=== PATIENT | female | born 1995 | race Hispanic/Latino ===

== ENCOUNTER 2021-12-05 12:57 | Emergency (ER) | payer BC, OTHER ==
--- OUTSIDE RECORDS SUMMARY | 2021-12-05 13:01 | XMS REPORT | Continuity of Care Document ---
:1995 Author Organization [facility] t Address [address] [place] [address] Care Team Providers Name Role Phone REENA MAJANO Attending Clinician Unavailable Problems This patient has no known problems. Allergies, Adverse Reactions, Alerts This patient has no known allergies or adverse reactions. Medications This patient has no known medications. Procedures This patient has no known procedures. Encounters Start End Encounter Admission Attending Care Care Encounter Source Date/Time Date/Time Type Type Clinicians Facility Department ID 2020-07-03 Inpatient [facility] [id number] 15:08:05 REENA Martel [facility] 2020-02-25 2020-02-25 Outpatient [facility] [id number] 09:25:00 11:10:00 [facility]gas [facility] Results This patient has no known results.
--- NOTE | 2021-12-05 13:51 | RAD REPORT ---
EXAM DESCRIPTION: RAD - Hip Right 2 View - 12/05/2021 1:34 pm CLINICAL HISTORY: PAIN COMPARISON: LUMBAR SPINE 3 VIEWS dated 04/26/2014 FINDINGS/IMPRESSION: No acute fracture. No malalignment. Mild right acetabular degenerative changes.
--- NOTE | 2021-12-05 14:27 | ER ---
Nurse's Notes [facility] Name: Elizabeth Guzman Age: 26 yrs Sex: Female : 1995 Arrival Date: 12/05/2021 Time: 12:58 Bed 25 Private MD: Jovan Hart Diagnosis: Pain in right hip Presentation: 12/05 13:04 Chief complaint: Patient states: she is having right hip pain after running. patient ap3 states she went running Friday11/29/21 and started having right hip pain on 11/30/21. patient states she waited a few days before attempting to run again, and when she did, she started having increased hip pain again. Patient reports decrease mobility with the right leg. Coronavirus screen: At this time, the client does not indicate any symptoms associated with coronavirus-19. Ebola Screen: No symptoms or risks identified at this time. Initial Sepsis Screen: Does the patient meet any 2 criteria? No. Patient's initial sepsis screen is negative. Does the patient have a suspected source of infection? No. Patient's initial sepsis screen is negative. Risk Assessment: Do you want to hurt yourself or someone else? Patient reports no desire to harm self or others. Onset of symptoms was November 29, 2021. 13:04 Method Of Arrival: Wheelchair ap3 13:04 Acuity: MARICHUY 4 ap3 Triage Assessment: 13:07 General: Appears uncomfortable, Behavior is calm, cooperative. Pain: Complains of pain ap3 in right hip. Neuro: Level of Consciousness is awake, alert, obeys commands, Oriented to person, place, time, situation. Cardiovascular: Patient's skin is warm and dry. Respiratory: Airway is patent Respiratory effort is even, unlabored. Musculoskeletal: Range of motion: limited in right hip Reports pain in right hip. 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 - Social history:: Smoking status: Patient denies any tobacco usage or history of. Screenin:07 Abuse screen: Denies threats or abuse. Nutritional screening: No deficits noted. ap3 Tuberculosis screening: No symptoms or risk factors identified. 13:10 Fall Risk No fall in past 12 months (0 pts). No secondary diagnosis (0 pts). No IV (0 tp1 pts). Ambulatory Aid- Crutches/Cane/Walker (15 pts). Gait- Weak (10 pts.). Mental Status- Oriented to own ability (0 pts). Total Vee Fall Scale indicates Low Risk Score (25-44 pts). Fall prevention measures have been instituted. Side Rails Up X 2 Placed close to Nursing Station Family Present and informed to notify staff if they need to leave bedside. Assessment: 13:15 General: Appears in no apparent distress. comfortable, Behavior is calm, cooperative. tp1 Pain: Complains of pain in right hip Pain radiates to right low back Pain currently is 3 out of 10 on a pain scale. at worst was 8 out of 10 on a pain scale. Pain began 2-3 days ago. Is continuous. Neuro: Level of Consciousness is awake, alert, obeys commands, Oriented to person, place, time, situation. Cardiovascular: Denies denies numbness or tingling in right leg Patient's skin is warm and dry. Respiratory: Airway is patent Respiratory effort is even, unlabored. GI: Abdomen is round non-distended. : No signs and/or symptoms were reported regarding the genitourinary system. EENT: No signs and/or symptoms were reported regarding the EENT system. Derm: Skin is pink, warm \T\ dry. Musculoskeletal: Circulation, motion, and sensation intact. 14:26 Reassessment: Patient appears in no apparent distress at this time. No changes from tp1 previously documented assessment. Patient and/or family updated on plan of care and expected duration. Pain level reassessed. Patient is alert, oriented x 3, equal unlabored respirations, skin warm/dry/pink. at bedside. Vital Signs: 13:04 BP 132 / 71; Pulse 73; Temp 98.5; Pulse Ox 98% ; Weight 90.72 kg; Height 5 ft. 3 in. ap3 (160.02 cm); 13:15 BP 101 / 83; Pulse 70; Resp 16; Pulse Ox 98% on R/A; tp1 14:26 BP 123 / 78; Pulse 65; Resp 16; Pulse Ox 100% on R/A; tp1 13:04 Body Mass Index 35.43 (90.72 kg, 160.02 cm) ap3 ED Course: 12:58 Patient arrived in ED. am2 12:58 Jovan Hart MD is Private Physician. am2 12:59 Nisha Rodriguez FNP-C is [facility]. kb 12:59 Dimitrios Lopez MD is Attending Physician. kb 13:07 Triage completed. ap3 13:08 Arm band placed on right wrist. ap3 13:10 Patient has correct armband on for positive identification. Placed in gown. Bed in low tp1 position. Call light in reach. Side rails up X 1. Adult w/ patient. Pulse ox on. NIBP on. 13:25 Kathryn Morales, RN is Primary Nurse. tp1 13:36 Hip Right 2 View XRAY In Process Unspecified. EDMS 14:35 No provider procedures requiring assistance completed. Patient did not have IV access tp1 during this emergency room visit. Administered Medications: No medications were administered Medication: 14:39 VIS not applicable for this client. tp1 Outcome: 14:26 Discharge ordered by . kb 14:39 Discharged to home ambulatory. tp1 14:39 Condition: good 14:39 Discharge instructions given to patient, Instructed on discharge instructions, follow up and referral plans. Demonstrated understanding of instructions, follow-up care. 14:40 Patient left the ED. tp1 Signatures: Dispatcher [employer] EDMS Nisha Rodriguez FNP-C FNP-Lola Kim am2 Lola Cuello RN RN ap3 Kathryn Morales, RN RN tp1 Corrections: (The following items were deleted from the chart) 14:39 14:35 Fall Risk No fall in past 12 months (0 pts). No secondary diagnosis (0 pts). No tp1 IV (0 pts). Ambulatory Aid- Crutches/Cane/Walker (15 pts). Gait- Weak (10 pts.). Mental Status- Oriented to own ability (0 pts). Total Vee Fall Scale indicates Low Risk Score (25-44 pts). Fall prevention measures have been instituted. Side Rails Up X 2 Placed close to Nursing Station Family Present and informed to notify staff if they need to leave bedside tp1
--- NOTE | 2021-12-05 14:27 | EDPHYS ---
Physician Documentation [facility] Name: Elizabeth Guzman Age: 26 yrs Sex: Female : 1995 Arrival Date: 12/05/2021 Time: 12:58 Bed 25 Private MD: Jovan Hart ED Physician Dimitrios Lopez HPI: 12/05 13:30 This 26 yrs old Female presents to ER via Wheelchair with complaints of Hip kb Pain. 13:30 The patient or guardian reports decreased range of motion, pain. that occurred at home, kb sustained from sports, running, There is no obvious deformity, The patient is not able to ambulate. Patient is not able to bear weight. There is no radiation of the patient's discomfort. The complaints affect the right hip. Onset: The symptoms/episode began/occurred 7 day(s) ago. Modifying factors: The symptoms are alleviated by nothing, the symptoms are aggravated by nothing. Associated signs and symptoms: Loss of consciousness: the patient experienced no loss of consciousness, Pertinent positives: None. Severity of symptoms: At their worst the symptoms were moderate, in the emergency department the symptoms are unchanged. The patient has not experienced similar symptoms in the past. The patient has not recently seen a physician. Pt states she started running on Friday, woke up with right hip pain so she took a break for 4 days. Ran again Friday and Friday, now unable to lift right leg at hip level. . 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 - Social history:: Smoking status: Patient denies any tobacco usage or history of. ROS: 13:29 Constitutional: Negative for fever, chills, and weight loss. kb 13:29 MS/extremity: Positive for decreased range of motion, pain, of the right hip. 13:29 All other systems are negative. Exam: 13:29 Constitutional: This is a well developed, well nourished patient who is awake, alert, kb and in no acute distress. Head/Face: Normocephalic, atraumatic. ENT: Moist Mucous membranes Cardiovascular: Regular rate and rhythm with a normal S1 and S2. No gallops, murmurs, or rubs. No pulse deficits. Respiratory: Respirations even and unlabored. No increased work of breathing. Talking in full sentences Skin: Warm, dry with normal turgor. Normal color. Neuro: Awake and alert, GCS 15, oriented to person, place, time, and situation. Moves all extremities. Normal gait. Psych: Awake, alert, with orientation to person, place and time. Behavior, mood, and affect are within normal limits. 13:29 Musculoskeletal/extremity: Extremities: grossly normal except: noted in the right hip: decreased ROM, ROM: limited active range of motion, unable to lift right leg at hip level, can move medial and laterally, full ROM of foot, Circulation is intact in all extremities. Sensation intact. Weight bearing: is unable to bear weight. Vital Signs: 13:04 BP 132 / 71; Pulse 73; Temp 98.5; Pulse Ox 98% ; Weight 90.72 kg; Height 5 ft. 3 in. ap3 (160.02 cm); 13:15 BP 101 / 83; Pulse 70; Resp 16; Pulse Ox 98% on R/A; tp1 14:26 BP 123 / 78; Pulse 65; Resp 16; Pulse Ox 100% on R/A; tp1 13:04 Body Mass Index 35.43 (90.72 kg, 160.02 cm) ap3 MDM: 13:06 Patient medically screened. kb 13:30 Data reviewed: vital signs, nurses notes. Data interpreted: Pulse oximetry: on room air kb is 98 %. Interpretation: normal. 14:23 Counseling: I had a detailed discussion with the patient and/or guardian regarding: the kb historical points, exam findings, and any diagnostic results supporting the discharge/admit diagnosis, radiology results, the need for outpatient follow up, a orthopedic surgeon, to return to the emergency department if symptoms worsen or persist or if there are any questions or concerns that arise at home. 12/05 13:06 Order name: Hip Right 2 View XRAY; Complete Time: 13:54 kb Administered Medications: No medications were administered Disposition: 17:56 Co-signature as Attending Physician, Dimitrios Lopez MD I agree with the assessment and kdr plan of care. Disposition Summary: 12/05/21 14:26 Discharge Ordered Location: Home kb Condition: Stable kb Diagnosis - Pain in right hip kb Followup: kb - With: Emergency Department - When: As needed - Reason: Worsening of condition Followup: kb - With: Private Physician - When: 2 - 3 days - Reason: Recheck today's complaints, Continuance of care, Re-evaluation by your physician Discharge Instructions: - Discharge Summary Sheet kb - Musculoskeletal Pain kb Forms: - Medication Reconciliation Form kb - Thank You Letter kb - Antibiotic Education kb - Prescription Opioid Use kb Signatures: Dispatcher [employer] EDMS Nisha Rodriguez, JOB TRAINING SUPERVISOR-C JOB TRAINING SUPERVISOR-Dimitrios Soto MD MD kdr Prokisch, Amanda, RN RN ap3
[2021-12-05 15:17] VITALS: TEMP 98.5
[2021-12-05 15:21] VITALS: BP 123/78; O2SAT 100
== END 2021-12-05 14:40 | disposition home or self-care (01) ==
LOC: ER 12:57
DX: M25.551 Pain in right hip (principal)